=== PATIENT | male | born 1940 | race Caucasian/White ===

== ENCOUNTER 2021-08-12 12:39 | Outpatient (RCR) | payer SELFPAY | END 2021-11-10 23:59 | disposition home or self-care (01) | LOC: ANHBWCAUD 12:39 | DX: Z46.1 Encounter for fitting and adjustment of hearing aid (principal) | CPT/HCPCS: V5264 ==

== ENCOUNTER 2021-09-01 12:53 | Outpatient (CLI) | payer MEDICARE, OTHER, SELFPAY | END 2021-09-01 12:54 | disposition home or self-care (01) | LOC: ANHBWCAUD 12:55 | PROVIDERS: Visit Provider Family Medicine | DX: H91.93 Unspecified hearing loss, bilateral (principal) | CPT/HCPCS: 92557; 92567 ==

== ENCOUNTER 2022-02-09 01:57 | Day surgery (SDC) | payer MEDICARE, OTHER, SELFPAY ==
[2022-01-22 10:31] VITALS: BMI 24.2
[2022-02-09 10:00] VITALS: BP 158/58; PULSE 60; RESP 18; TEMP 36.6; O2SAT 100; BMI 23.8
[2022-02-09] MEDS: LACTATED RINGERS 1,000 ML 150 ML IV CONT (10:04)
--- NOTE | 2022-02-09 10:54 | P.HP_ITS ---
History of Present Illness History of Present Illness Consent: Risks, benefits, and alternatives have been discussed and questions answered. Patient agrees to proceed with procedure. Chief complaint: neoplasm screening Narrative: Owen Broderick is a 81 year old male Presents for colonoscopy. Patient reports previous colonoscopies in [place]. He states his been 10 years since last exam. Patient referred today for screening colonoscopy. Patient's current weight appetite bowel movements are normal. He states he did have colon polyps 30 years ago but none on most recent colonoscopy is. He is quite anxious. Family history is reported to be noncontributory. Review of Systems Review of Systems: Review of systems noncontributory. PMFSH Social History Social History Alcohol intake: never Substance use: never Substance use type: does not use Living arrangements: with family Spiritual care concerns: No Meds Home Medications and Allergies Home Medications Medication Instructions Recorded Confirmed Type alprazolam 1 mg tablet 1 mg PO BID 01/22/22 02/09/22 History doxazosin 2 mg tablet 2 mg PO DAILY 01/22/22 01/22/22 History famotidine 20 mg tablet 20 mg PO BID 01/22/22 01/22/22 History irbesartan 75 mg tablet 75 mg PO DAILY 01/22/22 01/22/22 History meloxicam 15 mg tablet 15 mg PO PRN PRN Pain 01/22/22 01/22/22 History sennosides 8.6 mg tablet (Senna 8.6 mg PO PRN PRN Constipation 01/22/22 01/22/22 History Lax) triamterene 37.5 1 cap PO PRN 01/22/22 01/22/22 History mg-hydrochlorothiazide 25 mg capsule Allergies Allergy/AdvReac Type Severity Reaction Status Date / Time acetaminophen [From Vicodin] Allergy Hives Verified 02/09/22 09:58 amoxicillin Allergy Rash Verified 02/09/22 09:58 ciprofloxacin [From Cipro] Allergy Rash Verified 02/09/22 09:58 hydrocodone [From Vicodin] Allergy Hives Verified 02/09/22 09:58 Penicillins Allergy Hives Verified 02/09/22 09:58 lisinopril AdvReac Chest Pain Verified 02/09/22 09:58 paroxetine [From Paxil] AdvReac Other Verified 02/09/22 09:58 sertraline [From Zoloft] AdvReac Other Verified 02/09/22 09:58 trazodone AdvReac Dizziness Verified 02/09/22 09:58 Vital Signs Vital Signs - 24 hr 02/09/22 10:00 Temperature 97.8 F Pulse Rate 60 Respiratory Rate 18 Blood Pressure 158/58 H Pulse Oximetry 100 Oxygen Delivery Room Air Exam Narrative: Physical exam reveals patient to be alert. Vital signs stable. HEENT exam unremarkable. Lungs are clear to auscultation and percussion. Heart is without murmur or extra sounds. Abdomen bowel sounds are present soft nontender with no organomegaly. Digital external rectal exam is normal. Assessment and Plan Assessment and plan (1) Encounter for screening colonoscopy: Code(s): Z12.11 - Encounter for screening for malignant neoplasm of colon Status: Acute Assessment and Plan: Patient presents for screening colonoscopy. Further recommendations will be given after endoscopy.
[2022-02-09 11:15] VITALS: BP 122/61; PULSE 54; RESP 13; O2SAT 95
[2022-02-09 11:25] VITALS: BP 138/74; PULSE 56; RESP 13; O2SAT 99
[2022-02-09 11:35] VITALS: BP 159/72; PULSE 61; RESP 16; O2SAT 99
== END 2022-02-09 11:52 | disposition home or self-care (01) ==
PROVIDERS: PCP Family Medicine; Visit Provider Internal Medicine Gastroenterology
PROC: 0DJD8ZZ Inspection of Lower Intestinal Tract, Via Natural or Artificial Opening Endoscopic (ICD-10-PCS; CPT 45378; principal; 2022-02-09 11:30)
DX: Z12.11 Encounter for screening for malignant neoplasm of colon (principal); K64.8 Other hemorrhoids; K57.30 Diverticulosis of large intestine without perforation or abscess without bleeding
CPT/HCPCS: G0121; J2704; J7120

== ENCOUNTER 2022-09-14 12:53 | Outpatient (RCR) | payer MEDICARE, OTHER, SELFPAY | END 2022-12-13 23:59 | disposition home or self-care (01) | LOC: ANHBWCAUD 12:53 | PROVIDERS: PCP Family Medicine; Visit Provider Family Medicine | DX: Z46.1 Encounter for fitting and adjustment of hearing aid (principal) | CPT/HCPCS: 92593 ==

== ENCOUNTER 2024-04-24 12:40 | Outpatient (RCR) | payer SELFPAY | END 2024-07-23 23:59 | disposition home or self-care (01) | LOC: ANHBWCAUD 12:40 | PROVIDERS: PCP Family Medicine; Visit Provider Family Medicine | DX: Z46.1 Encounter for fitting and adjustment of hearing aid (principal) | CPT/HCPCS: 92593 ==